=== PATIENT | male | born 1995 | race Caucasian/White ===

== ENCOUNTER 2017-11-26 00:39 | Emergency (ER) | payer MEDICAID, OTHER ==
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
[2017-11-26] MEDS ORDERED: oxyCODONE/Acetamin 5/325 MG* TAB PO ONE (02:26)
[2017-11-26] MEDS ORDERED: Bacitracin OINTMENT PAK ONE (02:58)
[2017-11-26 04:11] VITALS: BP 144/94
--- NOTE | 2017-11-26 08:10 | RAD ---
Indication: Left clavicle injury., Left shoulder injury 2 views of the left shoulder demonstrates fracture mid shaft of the clavicle with inferior displacement approximately 2 shafts width. IMPRESSION: Inferiorly displaced clavicle fracture. R0
--- NOTE | 2017-11-26 08:11 | RAD ---
Indication: Left shoulder injury. 2 views of left clavicle demonstrates inferiorly displaced fracture mid left clavicle. IMPRESSION: Fracture of the left clavicle with inferior displacement. R0
== END 2017-11-26 04:10 | disposition home or self-care (01) ==
LOC: ED 00:39
DX: S42.022A Displaced fracture of shaft of left clavicle, initial encounter for closed fracture (principal); V18.4XXA Pedal cycle driver injured in noncollision transport accident in traffic accident, initial encounter; Y93.55 Activity, bike riding; Y92.9 Unspecified place or not applicable
CPT/HCPCS: 99283; A9270-GY